=== PATIENT | female | born 1985 | race Caucasian/White ===

== ENCOUNTER 2017-07-12 18:34 | Emergency (ER) | payer MEDICAID ==
[~2017-07-12] VITALS: Ht 172.7 cm; Wt 90.7 kg
[2017-07-12 18:54] VITALS: BP 110/73
[2017-07-12] MEDS ORDERED: IBUPROFEN 600 MG TAB PO ONE (22:30)
[2017-07-12] MEDS ORDERED: BACLOFEN 10 MG TAB PO ONE (22:30)
== END 2017-07-12 23:21 | disposition home or self-care (01) ==
LOC: ER 18:38
DX: S13.9XXA Sprain of joints and ligaments of unspecified parts of neck, initial encounter (principal); S39.012A Strain of muscle, fascia and tendon of lower back, initial encounter; F17.210 Nicotine dependence, cigarettes, uncomplicated; R51 Headache; Z88.8 Allergy status to other drugs, medicaments and biological substances; V43.52XA Car driver injured in collision with other type car in traffic accident, initial encounter; Y93.89 Activity, other specified; Y92.89 Other specified places as the place of occurrence of the external cause; Y99.8 Other external cause status
CPT/HCPCS: 70450; 72100; 72125